=== PATIENT | female | born 1990 | race Caucasian/White ===

== ENCOUNTER → 2020-03-03 | Emergency (ER) | payer MEDICAID ==
[~2020-03-03] VITALS: Ht 177.8 cm; Wt 62.7 kg
[~2020-03-03] MED LIST: KEFLEX500 MG PO
== END ==
LOC: ED 22:59
DX: M53.3 Sacrococcygeal disorders, not elsewhere classified (principal); N39.0 Urinary tract infection, site not specified; F17.200 Nicotine dependence, unspecified, uncomplicated
CPT/HCPCS: 81001; 99283